=== PATIENT | female | born 1950 | race Caucasian/White ===

== ENCOUNTER 2017-07-07 13:17 | Emergency (ER) | payer OTHER ==
[2014-08-01 12:59] VITALS: BP 122/61
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
== END 2017-07-07 15:00 | disposition home or self-care (01) ==
LOC: ER 13:17
DX: R51 Headache (principal); Z88.2 Allergy status to sulfonamides; Z88.0 Allergy status to penicillin; V49.59XA Passenger injured in collision with other motor vehicles in traffic accident, initial encounter; Y93.89 Activity, other specified; Y99.8 Other external cause status; Y92.89 Other specified places as the place of occurrence of the external cause
CPT/HCPCS: 70450; 99284-25

== ENCOUNTER 2018-05-21 11:16 | Emergency (ER) | payer MEDICARE, OTHER ==
[~2018-05-21] VITALS: Ht 160 cm; Wt 67.2 kg
[2018-05-21] MEDS ORDERED: DOXY100C2 PO (12:09)
--- NOTE | 2018-05-21 12:09 | PHYS DOC ---
Past History Past Medical History: No Pertinent History Past Surgical History: Cholecystectomy Alcohol Use: None Drug Use: None Adult General Chief Complaint Chief Complaint: ANIMAL BITE HPI HPI 67-year-old female presents with dog bite on her right forearm. The patient was petting the neighbor's dog when it turned around and bit her 1 time. She has 2 small puncture lee on the right forearm. The patient has interacted with the dog in the past with no issues. She has petted before without problems. She is unsure why the dog bit her. The dog does not wear a collar, but is on by the neighbor and is reported to be up-to-date on shots. The patient immediately went home and washed out the wounds with peroxide. Patient denies any other injuries or complaints. Review of Systems Review of Systems Constitutional: Denies fever or chills [] Eyes: Denies change in visual acuity, redness, or eye pain [] HENT: Denies nasal congestion or sore throat [] Respiratory: Denies cough or shortness of breath [] Cardiovascular: No additional information not addressed in HPI [] GI: Denies abdominal pain, nausea, vomiting, bloody stools or diarrhea [] : Denies dysuria or hematuria [] Musculoskeletal: Denies back pain or joint pain [] Integument: Dog bite right arm[] Neurologic: Denies headache, focal weakness or sensory changes [] Endocrine: Denies polyuria or polydipsia [] All other systems were reviewed and found to be within normal limits, except as documented in this note. Allergies Allergies Allergies Coded Allergies Type Severity Reaction Last Updated Verified Sulfa (Sulfonamide Antibiotics) Allergy Severe Rash 05/21/18 Yes Penicillins Allergy Intermediate Nausea 05/21/18 Yes acetylcholine Allergy Unknown 05/21/18 Yes Physical Exam Physical Exam Constitutional: Well developed, well nourished, no acute distress, non-toxic appearance. [] HENT: Normocephalic, atraumatic, bilateral external ears normal, oropharynx moist, no oral exudates, nose normal. [] Eyes: PERRLA, EOMI, conjunctiva normal, no discharge. [] Neck: Normal range of motion, no tenderness, supple, no stridor. [] Cardiovascular:Heart rate regular rhythm, no murmur [] Lungs & Thorax: Bilateral breath sounds clear to auscultation [] Abdomen: Bowel sounds normal, soft, no tenderness, no masses, no pulsatile masses. [] Skin: 2 puncture lee on the right anterior forearm with 5 mm skin tear. [] Back: No tenderness, no CVA tenderness. [] Extremities: No tenderness, no cyanosis, no clubbing, ROM intact, no edema. [] Neurologic: Alert and oriented X 3, normal motor function, normal sensory function, no focal deficits noted. [] Psychologic: Affect normal, judgement normal, mood normal. [] Current Patient Data Vital Signs Vital Signs Date Time Temp Pulse Resp B/P (MAP) Pulse Ox O2 Delivery O2 Flow Rate FiO2 05/21/18 11:27 97.8 81 18 97 Room Air EKG EKG [] Radiology/Procedures Radiology/Procedures [] Course & Med Decision Making Course & Med Decision Making Pertinent Labs and Imaging studies reviewed. (See chart for details) The patient does not have significant damage from the dog bite. It does appear to be a single bite. We are contacting the appropriate authorities for reporting. I discussed optional rabies treatment for the patient. The patient has elected not to do this. I do not believe that it is absolutely necessary as rabies cases from domestic dogs in the [facility] is rare. We'll discharge her with 7 days of doxycycline as she is allergic to Augmentin. She is stable for discharge at this time. [] Dragon Disclaimer Dragon Disclaimer This electronic medical record was generated, in whole or in part, using a voice recognition dictation system. Departure Departure: Impression: Primary Impression: Dog bite of right arm Disposition: 01 HOME, SELF-CARE Condition: STABLE Referrals: IVORY MILLARD MD (PCP) Patient Instructions: Animal Bite, [id number] Scripts Doxycycline Hyclate (DOXYCYCLINE HYCLATE) 100 Mg Capsule 1 CAP PO BID for animal bite, #14 CAP Prov: EVAN GAVIN DO 05/21/18 Problem Qualifiers Primary Impression: Dog bite of right arm Encounter type: initial encounter Qualified Codes: S41.151A - Open bite of right upper arm, initial encounter; W54.0XXA - Bitten by dog, initial encounter EVAN GAVIN DO May 21, 2018 12:09
[2018-05-21 13:00] VITALS: BP 137/97
[2018-05-21] MEDS ORDERED: DIPHTH,PERTUSS(ACELL),TET TOX 0.5 ML DISP.SYRIN. VAX IM ONE (13:00)
== END 2018-05-21 13:00 | disposition home or self-care (01) ==
LOC: ER 11:16
DX: S41.151A Open bite of right upper arm, initial encounter (principal); Z88.2 Allergy status to sulfonamides; Z88.0 Allergy status to penicillin; Z88.8 Allergy status to other drugs, medicaments and biological substances; W54.0XXA Bitten by dog, initial encounter; Y93.89 Activity, other specified; Y92.89 Other specified places as the place of occurrence of the external cause; Y99.8 Other external cause status
CPT/HCPCS: 90471; 90715; 99284

== ENCOUNTER 2018-10-30 12:34 | Emergency (ER) | payer OTHER ==
[~2018-10-30] VITALS: Ht 167.6 cm; Wt 64.0 kg
[~2018-10-30 12:34] MED LIST: DOXY100C2 PO
[2018-10-30 13:02] VITALS: BP 133/84
--- NOTE | 2018-10-30 13:15 | RAD ---
CHEST PA LATERAL History: Chest wall pain Comparison: None. Findings: The cardiomediastinal silhouette is normal. Pulmonary vasculature is normal. The lungs are clear. No pleural effusion or pneumothorax is seen. There is no acute bone abnormality. Dextroconvexity of the spine noted. Right upper quadrant surgical clips are present. IMPRESSION: No acute cardiopulmonary process. Electronically signed by: Yaya Van MD (10/30/2018 1:13 PM) [facility]
[2018-10-30] MEDS ORDERED: DICL50TA4 PO (13:35)
--- NOTE | 2018-10-30 13:35 | PHYS DOC ---
Past History Past Medical History: No Pertinent History Past Surgical History: Cholecystectomy Alcohol Use: None Drug Use: None Adult General Chief Complaint Chief Complaint: RIB PAIN HPI HPI Patient is a 68-year-old female who presents with complaint of right-sided rib pain that has intermittently been present for nearly a year. She states that when present the pain is sharp and stabbing in nature and is worsened with breathing, palpation and with certain movements. She denies any pain currently. She denies any cough. She also denies any fever or shortness of breath.[] Review of Systems Review of Systems Constitutional: Denies fever or chills [] Respiratory: Denies cough or shortness of breath [] Cardiovascular: No additional information not addressed in HPI [] GI: Denies abdominal pain, nausea, vomiting or diarrhea [] Integument: Denies rash or skin lesions [] Allergies Allergies Allergies Coded Allergies Type Severity Reaction Last Updated Verified Sulfa (Sulfonamide Antibiotics) Allergy Severe Rash 05/21/18 Yes Penicillins Allergy Intermediate Nausea 05/21/18 Yes Cholinesterase Inhibitor(Carbamate) Allergy Unknown 10/30/18 Yes acetylcholine Allergy Unknown 05/21/18 Yes succinylcholine Allergy Unknown 10/30/18 Yes Physical Exam Physical Exam Constitutional: Well developed, well nourished, no acute distress, non-toxic appearance. [] Neck: Normal range of motion, no tenderness, supple, no stridor. [] Cardiovascular: Regular rate and rhythm. There is reproducible tenderness to palpation along the anterior and anterolateral lower rib margin.[] Lungs & Thorax: Bilateral breath sounds clear to auscultation [] Abdomen: Bowel sounds normal, soft, no tenderness. [] Skin: Warm, dry, no erythema, no rash. [] Current Patient Data Vital Signs Vital Signs Date Time Temp Pulse Resp B/P (MAP) Pulse Ox O2 Delivery O2 Flow Rate FiO2 10/30/18 13:02 98.2 96 18 97 Room Air 10/30/18 12:56 133/84 (100) EKG EKG [] Radiology/Procedures Radiology/Procedures [] Impressions: PROCEDURE: CHEST PA & LATERAL CHEST PA LATERAL History: Chest wall pain Comparison: None. Findings: The cardiomediastinal silhouette is normal. Pulmonary vasculature is normal. The lungs are clear. No pleural effusion or pneumothorax is seen. There is no acute bone abnormality. Dextroconvexity of the spine noted. Right upper quadrant surgical clips are present. IMPRESSION: No acute cardiopulmonary process. Electronically signed by: Sia Avila MD (10/30/2018 1:13 PM) [facility] DICTATED AND SIGNED BY: SIA AVILA MD DATE: 10/30/18 1313 CC: AILYN HERRERA Jr. DO; TARYN KNOX MD ~ Course & Med Decision Making Course & Med Decision Making Pertinent Labs and Imaging studies reviewed. (See chart for details) [] Dragon Disclaimer Dragon Disclaimer This electronic medical record was generated, in whole or in part, using a voice recognition dictation system. Departure Departure: Impression: Primary Impression: Costochondritis Disposition: 01 HOME, SELF-CARE Condition: STABLE Referrals: TARYN KNOX MD (PCP) Patient Instructions: Costochondritis Scripts Diclofenac Sodium (DICLOFENAC SODIUM) 50 Mg Tablet. 1 TAB PO BID PRN for PAIN, #20 TAB Prov: AILYN HERRERA Jr., DO 10/30/18 AILYN HERRERA Jr., DO Oct 30, 2018 13:35
== END 2018-10-30 13:39 | disposition home or self-care (01) ==
LOC: ER 12:34
DX: M94.0 Chondrocostal junction syndrome [Tietze] (principal); Z90.49 Acquired absence of other specified parts of digestive tract; Z88.2 Allergy status to sulfonamides; Z88.0 Allergy status to penicillin; Z88.8 Allergy status to other drugs, medicaments and biological substances
CPT/HCPCS: 71046; 99284

== ENCOUNTER → 2019-11-04 | Emergency (ER) | payer OTHER ==
[~2019-11-04] MED LIST changes: +DICL50TA4 PO
== END | disposition left against medical advice (07) ==
LOC: ER 20:11
DX: T14.8XXA Other injury of unspecified body region, initial encounter (principal); Z53.21 Procedure and treatment not carried out due to patient leaving prior to being seen by health care provider; W57.XXXA Bitten or stung by nonvenomous insect and other nonvenomous arthropods, initial encounter; Y93.89 Activity, other specified; Y92.89 Other specified places as the place of occurrence of the external cause; Y99.8 Other external cause status